=== PATIENT | male | born 1965 | race Caucasian/White ===

== ENCOUNTER 2017-12-20 04:58 | Emergency (ER) | payer SELFPAY ==
[~2017-12-20] VITALS: Ht 177.8 cm; Wt 115.0 kg
[2017-12-20 05:01] VITALS: BP 119/76; PULSE 92; RESP 18; TEMP 98.4; O2SAT 95
--- NOTE | 2017-12-20 05:11 | PD ---
HPI Chief Complaint: General Weakness Time Seen by Provider: 05:06 Travel History International Travel<30 days: No Contact w/Intl Traveler<30days: No Traveled to known affect area: No History of Present Illness HPI 52-year-old male presents to the emergency department via EMS due to reported inability to walk as his legs were hurting and had dizziness after drinking alcohol. Patient reports he has not had a good week with recent of friend and family members. Patient is not homicidal or suicidal. Patient does have history of mental health issues and does take trazodone each morning. Patient has not overdosed on any of his medications reportedly. Patient has been drinking alcohol all day reportedly. Patient reportedly was walking home from a local bar when he noticed that his legs were bothering him. He reports that he was concerned he could not walk the entire way home. He reportedly saw a police car so flagged it down for assistance. EMS was subsequently called and transported him to the hospital. Patient denies chest pain, shortness of breath, abdominal pain, nausea, or vomiting. No reported recent febrile illness. Patient admits to history of cirrhosis and has been drinking today. No report of fall or injury. No report of hematemesis coffee-ground emesis melena or hematochezia. Patient denies any long-distance travel, protracted bedrest, surgical procedure, or clotting disorder. PFSH Past Medical History Narrative Medical Cirrhosis, gouty arthritis, alcohol use; nursing notes reviewed Social History Alcohol Use: Yes Tobacco Use: Yes Allergies-Medications (Allergen,Severity, Reaction): Coded Allergies: lisinopril (Verified Allergy, Severe, THROAT SWELLING, 12/20/17) Reported Meds & Prescriptions Reported Meds & Active Scripts Active Reported Lorazepam 2 Mg Tab 2 Mg PO BID Trazodone (Trazodone HCl) 50 Mg Tab 50 Mg PO TID Percocet (Oxycodone-Acetaminophen) 5-325 mg Tab 1 Tab PO Q4H PRN Omeprazole 20 Mg Tab 20 Mg PO DAILY Tramadol ER 24 HR (Tramadol HCl) 200 Mg Caper 150 Mg PO HS Narrative Medication Trazodone Review of Systems Except as stated in HPI: all other systems reviewed are Neg Physical Exam Narrative GENERAL: Well-developed well-nourished male no acute distress no respiratory distress; GCS 15 SKIN: Warm and dry. HEAD: Atraumatic. Normocephalic. EYES: Pupils equal and round. No scleral icterus. No injection or drainage. ENT: No nasal bleeding or discharge. Mucous membranes pink and moist. NECK: Trachea midline. No JVD. CARDIOVASCULAR: Regular rate and rhythm. RESPIRATORY: No accessory muscle use. Clear to auscultation. Breath sounds equal bilaterally. GASTROINTESTINAL: Abdomen soft, non-tender, nondistended. Hepatic and splenic margins not palpable. MUSCULOSKELETAL: Extremities without clubbing, cyanosis, or edema. No obvious deformities. NEUROLOGICAL: Awake and alert. No obvious cranial nerve deficits. Motor grossly within normal limits. Five out of 5 muscle strength in the arms and legs. Normal speech. Data Data Last Documented VS Vital Signs Date Time Temp Pulse Resp B/P (MAP) Pulse Ox O2 Delivery O2 Flow Rate FiO2 12/20/17 06:38 82 16 115/71 (86) 95 Room Air 12/20/17 05:01 98.4 Orders Orders Electrocardiogram (12/20/17 05:06) Complete Blood Count With Diff (12/20/17 05:06) Comprehensive Metabolic Panel (12/20/17 05:06) Magnesium (Mg) (12/20/17 05:06) Ckmb (Isoenzyme) Profile (12/20/17 05:06) Troponin I (12/20/17 05:06) Chest, Single Ap (12/20/17 05:06) Blood Glucose (12/20/17 05:06) Ecg Monitoring (12/20/17 05:06) Iv Access Insert/Monitor (12/20/17 05:06) Oximetry (12/20/17 05:06) Sodium Chloride 0.9% Flush (Ns Flush) (12/20/17 05:15) Alcohol (Ethanol) (12/20/17 05:06) Drug Screen, Random Urine (12/20/17 05:06) Ammonia (12/20/17 05:40) Act Partial Throm Time (Ptt) (12/20/17 05:47) Prothrombin Time / Inr (Pt) (12/20/17 05:47) Lactulose Liq (Lactulose Liq) (12/20/17 06:45) Labs Laboratory Tests Test 12/20/17 05:35 White Blood Count 4.0 TH/MM3 Red Blood Count 3.82 MIL/MM3 Hemoglobin 11.8 GM/DL Hematocrit 33.4 % Mean Corpuscular Volume 87.5 FL Mean Corpuscular Hemoglobin 31.0 PG Mean Corpuscular Hemoglobin Concent 35.4 % Red Cell Distribution Width 18.5 % Platelet Count 85 TH/MM3 Mean Platelet Volume 8.3 FL Neutrophils (%) (Auto) 60.4 % Lymphocytes (%) (Auto) 25.0 % Monocytes (%) (Auto) 9.2 % Eosinophils (%) (Auto) 4.3 % Basophils (%) (Auto) 1.1 % Neutrophils # (Auto) 2.4 TH/MM3 Lymphocytes # (Auto) 1.0 TH/MM3 Monocytes # (Auto) 0.4 TH/MM3 Eosinophils # (Auto) 0.2 TH/MM3 Basophils # (Auto) 0.0 TH/MM3 CBC Comment AUTO DIFF Differential Comment AUTO DIFF CONFIRMED Platelet Estimate LOW Ovalocytes 1+ Prothrombin Time 12.0 SEC Prothromb Time International Ratio 1.2 RATIO Activated Partial Thromboplast Time 29.2 SEC Blood Urea Nitrogen 8 MG/DL Random Glucose 118 MG/DL Albumin 3.1 GM/DL Calcium Level 8.4 MG/DL Magnesium Level 1.8 MG/DL Sodium Level 141 MEQ/L Potassium Level 4.1 MEQ/L Chloride Level 110 MEQ/L Carbon Dioxide Level 24.1 MEQ/L Anion Gap 7 MEQ/L Ammonia 79 MCMOL/L Urine Barbiturates Screen NEG Urine Amphetamines Screen NEG Urine Benzodiazepines Screen NEG Urine Cocaine Screen NEG Urine Cannabinoids Screen NEG MDM Medical Decision Making Medical Screen Exam Complete: Yes Emergency Medical Condition: Yes Medical Record Reviewed: Yes Interpretation(s) EKG: Normal sinus rhythm rate [address] elevation injury pattern or ectopy noted ammonia: 79, elevated Differential Diagnosis Well-developed well-nourished male no acute distress no respiratory distress here with complaint of leg pain that hurts when he walks and dizziness. Patient admits to drinking alcohol. Specimens collected and sent for resulting Narrative Course Well-developed well-nourished 52-year-old male in no acute distress no respiratory distress for complaint of weakness and pain in his legs associated with ambulation after drinking alcohol and inability to call someone to obtain a ride from a friend or a taxi because his cell phone battery drained presents for evaluation. Lab specimens collected and sent for resulting. In the interim patient actual identity has been verified with ID and name is Quincy Morales review of medical records identifies patient was seen as recently of October 2017 for hepatic encephalopathy ( prior TIPS in [place], EGD 10/2017- esophageal varices without banding). Patient medical record discloses that he is prescribed lactulose each morning and was told to use a walker at all times and to abstain from alcohol use. CBC with automated differential remarkable for thrombocytopenia platelet count 85,000 Serum ammonia 79, elevated given one-time dose of lactulose @ 0700 care signed over to Betty Read MD Dec 20, 2017 05:11
[2017-12-20] MEDS ORDERED: SODIUM CHLORIDE 0.9% FLUSH 10 ML FLUSH IVF PRN (05:15)
[2017-12-20] MEDS ORDERED: OMEP20TA93 PO (05:16)
[2017-12-20] MEDS ORDERED: TRAZ50TA12 PO (05:16)
[2017-12-20] MEDS ORDERED: PRIL20TA2 (05:16)
[2017-12-20] MEDS ORDERED: TRAM1CAP PO (05:16)
[2017-12-20] MEDS ORDERED: PERC5TAB12 PO (05:16)
[2017-12-20] MEDS ORDERED: LORA2TAB7 PO (05:16)
--- NOTE | 2017-12-20 05:38 | RADRPT ---
EXAM DATE/TIME: 12/20/2017 05:12 [facility] COMPARISON: No previous studies available for comparison. INDICATIONS : Palpitations. MEDICAL HISTORY : Cirrhosis. Gout. SURGICAL HISTORY : Femur, left. ENCOUNTER: Initial ACUITY: 1 day PAIN SCORE: 0/10 LOCATION: Bilateral chest FINDINGS: Single AP view of the chest. The lungs are clear. Mildly enlarged cardiac silhouette. No evidence of pleural effusion or pneumothorax. CONCLUSION: Mildly enlarged cardiac silhouette. No other acute cardiopulmonary disease identi fied. Reynaldo Mathews MD on December 20, 2017 at 5:35 Board Certified Radiologist. This report was verified electronically.
[2017-12-20 05:54] VITALS: BP 115/71; PULSE 79; RESP 18; O2SAT 96
[2017-12-20 06:05] LABS: AUTOMATED NEUTROPHIL # 2.4 TH/MM3 (1.8-7.7); BASOPHIL % 1.1 % (0.0-2.0); EOSINOPHIL # 0.2 TH/MM3 (0-0.4); EOSINOPHIL % 4.3 % (0.0-4.0); HEMATOCRIT 33.4 % (39.0-51.0); HEMOGLOBIN 11.8 GM/DL (13.0-17.0); MEAN CELL VOLUME 87.5 FL (80.0-100.0); MEAN CORPUSCULAR HGB CONC 35.4 % (32.0-36.0); MEAN PLATELET VOLUME 8.3 FL (7.0-11.0); MONO % 9.2 % (0.0-8.0); MONOCYTE # 0.4 TH/MM3 (0-0.9); NEUT % 60.4 % (16.0-70.0); PLATELET COUNT 85 TH/MM3 (150-450); RED BLOOD COUNT 3.82 MIL/MM3 (4.50-5.90); RED CELL DISTRIBUTION WIDTH 18.5 % (11.6-17.2)
[2017-12-20 06:07] LABS: CHLORIDE 110 MEQ/L (98-107); SODIUM (NA) 141 MEQ/L (136-145)
[2017-12-20 06:10] LABS: ALBUMIN 3.1 GM/DL (3.4-5.0); BICARBONATE 24.1 MEQ/L (21.0-32.0); CALCIUM 8.4 MG/DL (8.5-10.1); GLUCOSE,RANDOM 118 MG/DL (74-106); MAGNESIUM 1.8 MG/DL (1.5-2.5)
[2017-12-20 06:11] LABS: BLOOD UREA NITROGEN 8 MG/DL (7-18); INTERNATIONAL NORMALIZED RATIO 1.2 RATIO
[2017-12-20 06:13] LABS: ALT (GPT) 25 U/L (12-78); AST (GOT) 40 U/L (15-37)
[2017-12-20 06:14] LABS: CREATININE 0.91 MG/DL (0.60-1.30); GLOMERULAR FILTRATION RATE 87 ML/MIN (>89)
[2017-12-20 06:15] LABS: TOTAL BILIRUBIN ADULT 1.2 MG/DL (0.2-1.0); TOTAL PROTEIN 7.1 GM/DL (6.4-8.2)
[2017-12-20 06:16] LABS: ALKALINE PHOSPHATASE 150 U/L (45-117)
[2017-12-20 06:19] LABS: TROPONIN I 0.03 NG/ML (0.02-0.05)
[2017-12-20 06:38] VITALS: BP 115/71; PULSE 82; RESP 16; O2SAT 95
[2017-12-20 06:41] LABS: OVALOCYTES 1+ (NORMAL)
[2017-12-20] MEDS ORDERED: LACTULOSE SYRUP 20 GM/30 ML CUP PO ONE (06:45)
[2017-12-20 07:00] VITALS: BP 124/73; PULSE 81; RESP 16; O2SAT 98
--- NOTE | 2017-12-20 07:07 | PD ---
Physical Exam Date Seen by Provider: Dec 20, 2017 Data Data Last Documented VS Vital Signs Date Time Temp Pulse Resp B/P (MAP) Pulse Ox O2 Delivery O2 Flow Rate FiO2 12/20/17 07:00 81 16 124/73 (90) 98 12/20/17 06:38 Room Air 12/20/17 05:01 98.4 Orders Orders Electrocardiogram (12/20/17 05:06) Complete Blood Count With Diff (12/20/17 05:06) Comprehensive Metabolic Panel (12/20/17 05:06) Magnesium (Mg) (12/20/17 05:06) Ckmb (Isoenzyme) Profile (12/20/17 05:06) Troponin I (12/20/17 05:06) Chest, Single Ap (12/20/17 05:06) Blood Glucose (12/20/17 05:06) Ecg Monitoring (12/20/17 05:06) Iv Access Insert/Monitor (12/20/17 05:06) Oximetry (12/20/17 05:06) Sodium Chloride 0.9% Flush (Ns Flush) (12/20/17 05:15) Alcohol (Ethanol) (12/20/17 05:06) Drug Screen, Random Urine (12/20/17 05:06) Ammonia (12/20/17 05:40) Act Partial Throm Time (Ptt) (12/20/17 05:47) Prothrombin Time / Inr (Pt) (12/20/17 05:47) Lactulose Liq (Lactulose Liq) (12/20/17 06:45) CKMB (12/20/17 05:35) CKMB% (12/20/17 05:35) Labs Laboratory Tests Test 12/20/17 05:35 White Blood Count 4.0 TH/MM3 Red Blood Count 3.82 MIL/MM3 Hemoglobin 11.8 GM/DL Hematocrit 33.4 % Mean Corpuscular Volume 87.5 FL Mean Corpuscular Hemoglobin 31.0 PG Mean Corpuscular Hemoglobin Concent 35.4 % Red Cell Distribution Width 18.5 % Platelet Count 85 TH/MM3 Mean Platelet Volume 8.3 FL Neutrophils (%) (Auto) 60.4 % Lymphocytes (%) (Auto) 25.0 % Monocytes (%) (Auto) 9.2 % Eosinophils (%) (Auto) 4.3 % Basophils (%) (Auto) 1.1 % Neutrophils # (Auto) 2.4 TH/MM3 Lymphocytes # (Auto) 1.0 TH/MM3 Monocytes # (Auto) 0.4 TH/MM3 Eosinophils # (Auto) 0.2 TH/MM3 Basophils # (Auto) 0.0 TH/MM3 CBC Comment AUTO DIFF Differential Comment AUTO DIFF CONFIRMED Platelet Estimate LOW Ovalocytes 1+ Prothrombin Time 12.0 SEC Prothromb Time International Ratio 1.2 RATIO Activated Partial Thromboplast Time 29.2 SEC Blood Urea Nitrogen 8 MG/DL Creatinine 0.91 MG/DL Random Glucose 118 MG/DL Total Protein 7.1 GM/DL Albumin 3.1 GM/DL Calcium Level 8.4 MG/DL Magnesium Level 1.8 MG/DL Alkaline Phosphatase 150 U/L Aspartate Amino Transf (AST/SGOT) 40 U/L Alanine Aminotransferase (ALT/SGPT) 25 U/L Total Bilirubin 1.2 MG/DL Sodium Level 141 MEQ/L Potassium Level 4.1 MEQ/L Chloride Level 110 MEQ/L Carbon Dioxide Level 24.1 MEQ/L Anion Gap 7 MEQ/L Estimat Glomerular Filtration Rate 87 ML/MIN Ammonia 79 MCMOL/L Total Creatine Kinase 254 U/L Creatine Kinase MB 4.8 NG/ML Troponin I 0.03 NG/ML Urine Opiates Screen NEG Urine Barbiturates Screen NEG Urine Amphetamines Screen NEG Urine Benzodiazepines Screen NEG Urine Cocaine Screen NEG Urine Cannabinoids Screen NEG Ethyl Alcohol Level 152 MG/DL [facility] Medical Record Reviewed: Yes Supervised Visit with DRE: No Interpretation(s) Vital Signs Date Time Temp Pulse Resp B/P (MAP) Pulse Ox O2 Delivery O2 Flow Rate FiO2 12/20/17 06:38 82 16 115/71 (86) 95 Room Air 12/20/17 05:54 79 18 115/71 (86) 96 Room Air 12/20/17 05:07 87 18 95 Room Air 12/20/17 05:01 98.4 92 18 119/76 (90) 95 Narrative Course Please see previous provider's previous chart for full HPI Patient is a 52-year-old male alcoholic with history of liver cirrhosis, presents the emergency room for generalized weakness while walking home from a local bar after drinking alcohol today. Initial lab work was ordered by Dr. Schwartz, laboratory work pending including. Patient reports that he is feeling better at this time. CBC & BMP Diagram 12/20/17 05:35 Total Protein 7.1, Albumin 3.1 L, Calcium Level 8.4 L, Magnesium Level 1.8, Alkaline Phosphatase 150 H, Aspartate Amino Transf (AST/SGOT) 40 H, Alanine Aminotransferase (ALT/SGPT) 25, Total Bilirubin 1.2 H Last Impressions Chest X-Ray 12/20/17 0506 Signed Impressions: Service Date/Time: Wednesday, December 20, 2017 05:12 - CONCLUSION: Mildly enlarged cardiac silhouette. No other acute cardiopulmonary disease identified. Reynaldo Mathews MD Patient reevaluated, patient reports that he is feeling much better this time. His sister will come to emergency room to pick him up. Diagnosis Primary Impression: Generalized weakness Additional Impressions: Thrombocytopenia Increased ammonia level Anemia Qualified Codes: D64.9 - Anemia, unspecified Alcohol intoxication Qualified Codes: F10.920 - Alcohol use, unspecified with intoxication, uncomplicated Patient Instructions: General Instructions Additional Instruction: Please drink alcohol responsibly Please follow up with your primary care doctor in 2-3 days Return to the ER if symptoms worsen or progress Return to the ER as needed Disposition: 01 DISCHARGE HOME Condition: Stable BobJayne Vianca HOOD Dec 20, 2017 07:07
[2017-12-20 09:10] VITALS: BP 149/85; PULSE 101; RESP 16; O2SAT 95
[2017-12-20 09:31] VITALS: BP 111/71
--- NOTE | 2017-12-20 17:03 | EKG ---
Date Performed: 12/20/2017 Time Performed: 06:08:05 PTAGE: 52 years EKG: Sinus rhythm NORMAL ECG NO PREVIOUS TRACING DOCTOR: Sudhakar Bishop Interpretating Date/Time 12/20/2017 17:01:58
== END 2017-12-20 09:35 | disposition home or self-care (01) ==
LOC: PHED 04:58
DX: R53.1 Weakness (principal); D69.6 Thrombocytopenia, unspecified; D64.9 Anemia, unspecified; F10.129 Alcohol abuse with intoxication, unspecified; M79.606 Pain in leg, unspecified; K74.60 Unspecified cirrhosis of liver; M10.9 Gout, unspecified; Z72.0 Tobacco use; Z79.899 Other long term (current) drug therapy
CPT/HCPCS: 71045; 80053; 80307; 82140; 82550; 82552; 83735; 84484; 85025; 85610; 85730; 93005